=== PATIENT | male | born 1940 | race Caucasian/White ===

== ENCOUNTER 2019-03-20 20:29 | Inpatient (IN) | payer OTHER ==
[~2019-03-20] VITALS: Ht 172.7 cm; Wt 110.2 kg
--- NOTE | ~2019-03-20 | PROC ---
[address] [address] PROCEDURE REPORT Name: SASHA LOVELL Room: [address] ADM IN .R.#: [id number] Admission: 03/20/19 Attend Phys: Jaime Machado MD Discharge: Date of : 38 Report #: [id number] THIS REPORT FOR: //name// For GI report, please see the Provation report in Perceptive 7 content. By: 1212Medical Records Staff EVETTE /JASPER
[2019-03-20 20:30] VITALS: BP 90/64
[2019-03-20 20:56] LABS: HEMATOCRIT 41.9 % (42.0-52.0); HEMOGLOBIN 13.2 gm/dL (14.0-18.0); MCH 26.7 pg (26.0-34.0); MCHC 31.6 g/dL (28.0-37.0); MCV 84.6 fL (80.0-100.0); MPV 7.7 fl. (7.2-11.1); NUCLEATED RBCS 0 /100WBC; PLATELET COUNT* 240 thou/uL (150-400); RBC 4.95 mil/uL (4.50-6.00); WBC 17.9 thou/uL (4.0-11.0)
--- NOTE | 2019-03-20 21:00 | NUR ---
UPON ARRIVAL TO ER LEFT LEG SIZE>THAN RIGHT 2+ PEDAL PULSE NOTED TO BILAT FEET
[2019-03-20 21:03] LABS: ANION GAP 11 mmol/L (7-16); BUN 27 mg/dL (7-18); CALCIUM 8.7 mg/dL (8.5-10.1); CHLORIDE 99 mmol/L (98-107); CO2 23 mmol/L (21-32); CREATININE 3.5 mg/dL (0.6-1.3); GLUCOSE 109 mg/dL (70-99); POTASSIUM 4.7 mmol/L (3.5-5.1); SODIUM 133 mmol/L (136-145)
[2019-03-20 21:07] LABS: URINE BILIRUBIN 1+ (Negative); URINE BLOOD 3+ (Negative); URINE CLARITY CLOUDY; URINE COLOR YELLOW; URINE GLUCOSE-RANDOM NEGATIVE (Negative); URINE KETONES TRACE (Negative); URINE LEUKOCYTES-REFLEX 3+ (Negative); URINE NITRITE-REFLEX NEGATIVE (Negative); URINE PROTEIN 2+ (Negative); URINE SPECIFIC GRAVITY 1.025 (1.005-1.030); URINE UROBILINOGEN 0.2 E.U./dl (0.2-1.0)
[2019-03-20 21:12] LABS: ALBUMIN 2.9 g/dL (3.4-5.0); ALKALINE PHOSPHATASE 113 U/L (46-116); SGOT 18 U/L (15-37); SGPT 11 U/L (30-65); TOTAL BILIRUBIN 0.7 mg/dL (<0.1-1.0); TOTAL PROTEIN 7.7 g/dL (6.4-8.2); TROPONIN-I LEVEL <0.06 ng/mL (<0.06)
[2019-03-20 21:14] LABS: MUCUS None Seen strn/LPF (None Seen); SQUAMOUS 0-3 Few /LPF (0-3); URINE WBC-REFLEX >25 Many /HPF (0-5)
[2019-03-20 21:15] LABS: WBC CLUMPS Few (None Seen)
[2019-03-20 21:16] LABS: CRYSTALS None Seen /LPF (None Seen); HYALINE CASTS 0-3 Few /LPF (None Seen)
[2019-03-20 21:33] LABS: ABSOLUTE BASOPHILS 0.2 thou/uL (0.0-0.2); ABSOLUTE EOSINOPHILS 0.5 thou/uL (0.0-0.7); ABSOLUTE MONOCYTES 1.3 thou/uL (0.0-1.2)
[2019-03-20 21:34] LABS: ANISOCYTOSIS 1+; PLATELET ESTIMATE ADEQUATE
[2019-03-20 21:35] LABS: LARGE PLATELETS OCCASIONAL; MACROCYTES Occasional
[2019-03-20 23:45] VITALS: BP 130/68
[2019-03-21] VITALS (9 sets, daily range): BP systolic 98–196; BP diastolic 54–97
--- NOTE | 2019-03-21 06:34 | NUR ---
RECEIVED REPORT FROM ED RN RAY AT 2330. PT ARRIVED TO UNIT AT 2352. PT AAOX4, GLASS SAGGER IN PLACE, V PACED. FALL PRECAUTIONS IN PLACE. ADMISSION ASSESSMENT COMPLETED. ATTEMPTED TO PLACE REZA CATHETER WITH DIFFICULTY, PLACED 14F COUDE. HOURLY ROUNDING COMPLETED, CALL LIGHT WITHIN REACH. VOICES NO CONCERNS THIS SHIFT.
[2019-03-21 08:31] LABS: CREATININE 3.1 mg/dL (0.6-1.3); POTASSIUM 4.8 mmol/L (3.5-5.1)
--- NOTE | 2019-03-21 14:08 | NUR ---
Pt is A&O. Resides at home with his ex and son. Independent, but has required some assistance recently, Pt stated that he has felt "weak" recently. Hx of SNF in [place]. No hx of HH. Pt has a cane that he uses PRN. [facility]. Pt is in agreement with going to [facility], if necessary, Pt would want to go to [place]. Following.
--- NOTE | 2019-03-21 16:28 | NUR ---
D/C SALES PERFORMANCE ANALYST INFORMED OF PATEINT'S REQUEST TO COMPLETE DPOA. PATIENT COMPLETED FORM AND CM NOTARIZED AND PLACED COPY ON CHART. D/C SALES PERFORMANCE ANALYST ALSO PROVIDED PATIENT WITH MULTIPLE COPIES AND INFORMED PATIENT TO DISPERSE TO FAMILY, AGENT, AND PCP. CM WILL REMAIN AVAILABLE TO ASSIST AND FOLLOW NEEDED.
--- NOTE | 2019-03-21 20:05 | NUR ---
I ASSUMED CARE OF THE PATIENT AT 0700. HE IS ALERT AND ORIENTED X4 AND IS UP WITH STANDBY ASSIST. PT/OT/ST CAME TO EVALUATE. DIET WAS CHANGED FROM SOLID TO CHOPPED TO PUREED (PATIENT IS STRUGGLING TO SWALLOW). BARIUM SWALLOW WAS ORDERED FOR TOMORROW. BED IS IN THE LOW LOCKED POSITION AND CALL LIGHT IS IN REACH. HOURLY ROUNDING IS COMPLETED AND PATIENT NEEDS ARE MET. PAIN IS MANAGED WITH PRN MEDS. HE IS NPO AT MIDNIGHT. LIBIA IS WORKING DIRECTED. PATIENT IS ENCOURAGED TO CHARGE POSITIONS EVERY 2 HOURS. WILL CONTINUE TO MONITOR.
--- NOTE | 2019-03-22 00:59 | NUR ---
ON BED REST UNTIL 0000 THEN OOB WITH STD BY ASSIST. R GROIN DRSG D/I. R GROIN SOFT NO BRUSING OR HEMATOMA NOTED. TELEMETRY SHOWS SR. DENIES PAIN. PT REQUESTING TWO CUPS OF COFFEE.
[2019-03-22 04:00] VITALS: BP 163/76
--- NOTE | 2019-03-22 04:51 | NUR ---
PT LETHARGIC ORIENTED X 4. [place]. TURN Q 2 HRS. TELEMETRY SHOWS AV MOSTLY V PACED WITH ECTOPY. NS AT 100ML/HR. REZA FOR RETENTION.
[2019-03-22 04:56] LABS: HEMATOCRIT 33.9 % (42.0-52.0); MCH 27.3 pg (26.0-34.0); MCV 85.5 fL (80.0-100.0); RBC 3.96 mil/uL (4.50-6.00); RDW-CV 16.6 % (10.5-14.5); WBC 13.7 thou/uL (4.0-11.0)
[2019-03-22 05:01] LABS: HEMOGLOBIN 10.8 gm/dL (14.0-18.0)
--- NOTE | 2019-03-22 05:05 | NUR ---
NPO FOR [facility] SWALLOW STUDY.
[2019-03-22 05:07] LABS: CALCIUM 8.5 mg/dL (8.5-10.1); CREATININE 2.5 mg/dL (0.6-1.3); MAGNESIUM 2.1 mg/dL (1.8-2.4); POTASSIUM 4.3 mmol/L (3.5-5.1)
[2019-03-22 08:00] VITALS: BP 140/79; BP 150/71
[2019-03-22] MEDS ORDERED: LIPITOR 20 MG T20 M1 PO (08:42)
[2019-03-22] MEDS ORDERED: CARVEDILOL12.5 MG PO (08:43)
[2019-03-22] MEDS ORDERED: LASIX 40 MG TAB40 M2 PO (08:45)
[2019-03-22] MEDS ORDERED: ISOSORBIDE DINI20 M2 PO (08:47)
[2019-03-22] MEDS ORDERED: KLOR-CON 1010 MEQ PO (08:48)
--- NOTE | 2019-03-22 09:31 | EKG ---
[place] [address] ELECTROCARDIOGRAM REPORT Name: SASHA LOVELL Room: [address] IN [facility].#: [id number] Admission: 03/20/19 Attend Phys: Jaime Machado MD Discharge: Date of : 39 Report #: [id number] THIS REPORT FOR: //name// [facility] ED Test Date: 2019-03-20 Test Time: 20:39:53 Pat Name: SASHA LOVELL Department: Room: [facility] Gender: M Sheeting Puller: HAI : 1940 Requested By: Hussein Davis Order Number: [id number] MD: Honorio Romano Measurements Intervals [place] Rate: 87 P: 0 [place]: 168 QRS: 157 QRSD: 158 T: -46 QT: 409 QTc: 492 Interpretive Statements Atrial-sensed ventricular-paced complexes No further analysis attempted due to paced rhythm No previous ECG available for comparison Electronically Signed On 03-22-2019 9:31:46 CDT by Honorio Romano [email or web address] <ELECTRONICALLY SIGNED> By: Honorio Romano MD, [facility] 03/22/19 0931 38 38 Honorio Romano MD, [facility] /EPI
[2019-03-22 12:13] VITALS: BP 133/63
[2019-03-22 16:15] VITALS: BP 115/70
[2019-03-22 19:45] VITALS: BP 130/70
[2019-03-23] VITALS: BP 120/59
[2019-03-23 04:00] VITALS: BP 139/68
--- NOTE | 2019-03-23 04:38 | NUR ---
PATIENT REMAINS STABLE THIS SHIFT WITH NO CHANGES IN STATUS. VSS ON ROOM AIR. PATIENT DENIES PAIN AND DISCOMFORT. PATIENT NPO FOR EGD TODAY. CALL LIGHT WITHIN REACH
[2019-03-23 05:09] LABS: HEMATOCRIT 31.9 % (42.0-52.0); MCH 26.6 pg (26.0-34.0); MCHC 31.4 g/dL (28.0-37.0); MCV 84.9 fL (80.0-100.0); MPV 7.8 fl. (7.2-11.1); RBC 3.76 mil/uL (4.50-6.00); RDW-CV 16.7 % (10.5-14.5)
[2019-03-23 05:17] LABS: CREATININE 2.1 mg/dL (0.6-1.3); MAGNESIUM 1.9 mg/dL (1.8-2.4)
[2019-03-23 08:00] VITALS: BP 122/70
[2019-03-23 17:22] VITALS: BP 96/73
[2019-03-23 20:00] VITALS: BP 117/64
[2019-03-24 01:00] VITALS: BP 131/69
[2019-03-24 04:00] VITALS: BP 108/46
[2019-03-24 04:28] LABS: ABSOLUTE BASOPHILS 0.1 thou/uL (0.0-0.2); ABSOLUTE EOSINOPHILS 0.5 thou/uL (0.0-0.7); ABSOLUTE LYMPHOCYTES 2.1 thou/uL (0.8-5.3); ABSOLUTE MONOCYTES 1.5 thou/uL (0.0-1.2); ABSOLUTE NEUTROPHILS 7.3 thou/uL (1.6-8.1); BASOPHILS 0.7 %; EOSINOPHILS 4.4 %; HEMATOCRIT 32.5 % (42.0-52.0); LYMPHOCYTES 18.1 %; MCH 26.6 pg (26.0-34.0); MCHC 30.7 g/dL (28.0-37.0); MCV 86.6 fL (80.0-100.0); MONOCYTES 13.3 %; MPV 7.8 fl. (7.2-11.1); NUCLEATED RBCS 0 /100WBC; PLATELET COUNT* 223 thou/uL (150-400); POLYS 63.5 %; RBC 3.75 mil/uL (4.50-6.00); RDW-CV 16.7 % (10.5-14.5); WBC 11.5 thou/uL (4.0-11.0)
[2019-03-24 04:44] LABS: ALBUMIN 2.1 g/dL (3.4-5.0); CALCIUM 7.9 mg/dL (8.5-10.1); POTASSIUM 4.1 mmol/L (3.5-5.1); TOTAL BILIRUBIN 0.4 mg/dL (<0.1-1.0)
--- NOTE | 2019-03-24 05:06 | NUR ---
PATIENT PROGRESSING TOWARDS GOALS: TOLERATING FULL LIQUID DIET. PATIENT EAGER TO HAVE "REAL FOOD" TODAY. PATIENT DENIES PAIN/DISCOMFORT AND NAUSEA THIS SHIFT. POSSIBLE DC HOME TODAY. CALL LIGHT WITHIN REACH.
[2019-03-24 08:20] VITALS: BP 123/67
[2019-03-24 12:20] VITALS: BP 102/50
[2019-03-24 15:12] LABS: HEPATITIS B SURFACE AG Negative (Negative)
--- NOTE | 2019-03-24 15:21 | NUR ---
SW faxed referral for SNF to [place] as pt first preference; SW received call from admissions at [facility]. SW met with pt to discuss other SNF options and explained the denial of [facility] due to insurance. Pt hopeful to find accepting facility near home and wanted SW to try [facility] and/or [facility], maybe [place]. SW to fax referral to [facility], [facility], and [facility] SNFs. DC will be pending accepting facility and insurance authorization.
[2019-03-24 16:31] VITALS: BP 113/87
--- NOTE | 2019-03-24 17:30 | NUR ---
Patient resting up in chair. Patient is up with moderate assist with walker and gait belt. Patient denies any pain. Patient is tolerating mechanical ground diet, was unable to eat cheeseburger at lunch and diet change dto ground. Patient worked with physical therapy this am. Patient denies any needs at this time. Call light within reach. Will continue to monitor.
[2019-03-24 18:00] VITALS: BP 113/87
--- NOTE | 2019-03-24 18:18 | CON ---
[address] [address] CONSULTATION Name: SASHA LOVELL Room: [address] IN M.R.#: [id number] Admission: 03/20/19 Attend Phys: Jaime Machado MD Discharge: Date of : 39 Report #: [id number] THIS REPORT FOR: //name// CC: Jaime Miles MD DICTATED BY: Liberty Nath [facility] DATE OF SERVICE: 03/22/2019 Please note at the time of this dictation, the patient was seen and physically examined by myself. REASON FOR CONSULTATION: Difficulty swallowing. HISTORY OF PRESENT ILLNESS: This is a 78-year-old male who presented to [facility] for increased weakness and was transferred here for worsening of his weakness and inability to stand and near falling. He states he is weak all over including all of his upper extremities and has progressively gotten worse over the last several weeks. He states he has noted some chills and foul smelling urine. He does self-cath himself regularly as well. The patient also since he has been here has been complaining of difficulty swallowing, which has been worsening over a period of time. He cannot give me the length of time. He states it was not happening at the beginning of the year. It started sometime thereafter and over the last couple of weeks, it has progressively gotten worse. He states it is mainly with solid foods and not liquids. He has not had any vomiting or had to make himself get sick that something has gotten stuck. It is just harder for him to get solid foods to go down. The patient has never had any upper or lower endoscopy studies done at this time. ALLERGIES: No known drug allergies. MEDICATIONS: From home include aspirin, isosorbide dinitrate, Mucinex, and carvedilol. PAST MEDICAL HISTORY: Chronic kidney disease. He does have a defibrillator, history of acid reflux. 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 He does have sleep apnea. He has got a pacemaker with defibrillator and vitamin D deficiency. PAST SURGICAL HISTORY: His ICD placed. He has had a history of a PEG tube and reversal, cholecystectomy. He has got an IVC filter, tonsillectomy. He has had a tracheotomy [place] [address] CONSULTATION Name: SASHA LOVELL Room: [address]#: [id number] Admission: 03/20/19 Attend Phys: Jaime Machado MD Discharge: Date of : 39 Report #: [id number] FAMILY HISTORY: Father esophageal cancer. SOCIAL HISTORY: Lives alone. He does chew tobacco on a regular basis, but has never smoked tobacco. He does currently take a shot of whiskey in his coffee every morning. REVIEW OF SYSTEMS: Twelve-point review of systems is essentially negative except what is mentioned in the HPI. PHYSICAL EXAMINATION: VITAL SIGNS: Temperature 36.6, pulse 81, respirations 14, blood pressure 150/71. HEART: Regular rate and rhythm. LUNGS: Diminished, but clear. ABDOMEN: Soft, positive bowel sounds in all 4 quadrants with no masses or tenderness noted. LABORATORY DATA: Hemoglobin on admission was 13.2, is 10.8, white count was 7.9, is 13.7, platelets 183. GFR is 25. Chest x-ray was completely normal. IMPRESSION: 1. Dysphagia. 2. Confusion, improving. 3. Weakness. 4. Leukocytosis. 5. Anemia. 6. Chronic kidney disease. 7. Tobacco use, chews daily. 8. Alcohol misuse. 9. Family history of esophageal cancer, father. PLAN: 1. Getting a barium swallow today. 2. We will keep him n.p.o. after midnight. 3. Likely will get an EGD tomorrow. 4. We will reassess in the a.m. 5. The patient will need an outpatient colonoscopy unless he agrees for inpatient regarding his anemia since he has never had an endoscopy [place] [address] CONSULTATION Name: SASHA LOVELL Room: [address] IN [facility]#: [id number] Admission: 03/20/19 Attend Phys: Jaime Machado MD Discharge: Date of : 39 Report #: [id number] Thank you for allowing us to participate in this patient's care. Please do not hesitate to call with any questions in regard to this consult. <ELECTRONICALLY SIGNED> By: John Castellanos DO 03/24/19 1818 1009 1224John Castellanos DO /nt
[2019-03-25 05:35] LABS: HEMATOCRIT 33.1 % (42.0-52.0); HEMOGLOBIN 10.5 gm/dL (14.0-18.0); MCH 27.1 pg (26.0-34.0); MCHC 31.6 g/dL (28.0-37.0); MCV 85.8 fL (80.0-100.0); MPV 7.7 fl. (7.2-11.1); RBC 3.86 mil/uL (4.50-6.00); RDW-CV 17.2 % (10.5-14.5); WBC 10.7 thou/uL (4.0-11.0)
[2019-03-25 06:11] LABS: CALCIUM 8.3 mg/dL (8.5-10.1); MAGNESIUM 1.7 mg/dL (1.8-2.4)
[2019-03-25 07:55] VITALS: BP 133/71
[2019-03-25] MEDS ORDERED: BACTRIM DS TAB1 EACH PO (09:45)
[2019-03-25] MEDS ORDERED: PEPCID20 MG PO (09:45)
[2019-03-25] MEDS ORDERED: PROTONIX40 M4 PO (09:45)
[2019-03-25] MEDS ORDERED: B12INJ SUBQ (09:53)
[2019-03-25] MEDS ORDERED: HYDROCODON-ACE1 EAC7 PO (09:53)
--- NOTE | 2019-03-25 10:07 | PATH ---
[address] [address] PATHOLOGY RPT PROCEDURE Name: SASHA WILLIAM Room: [address] IN .R.#: [id number] Admission: 03/20/19 Date of : 39 Discharge: Report #: [id number] Path Case #: [id number] [facility] Accession Number: [id number] . 01 Material submitted: . esophagus - ESOPHAGEAL ULCER AT 35CM, WITH BARRETTS . 01 Clinical history: . None provided . 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 . (TORI:mml; 03/24/2019) QL/03/24/2019 . 02 Electronically signed: . Mitch Coello MD, Pathologist NPI- [id number] . 01 Gross description: . Received in formalin labeled "Sasha William, esophagus ulcer at 35 cm with Watts's," are multiple segments of ordaz soft tissue measuring 0.9 x 0.4 x 0.1 cm in aggregate dimensions. The specimen is filtered and entirely submitted in cassette A1. (TSD; 03/23/2019) TOB/TOB . 02 Pathologist provided ICD-10: K22.10, K22.710 . 02 CPT . 208459 Specimen Comment: A courtesy copy of this report has been sent to Specimen Comment: [phone], , . Specimen Comment: Report sent to ,DR CHAMBERLAIN / DR BANG Performed at: [address], [place] [id number] MD Elias Jain MD Phone: [phone] Performed at: 02 [facility] [address], [place], [place] [id number] MD Mitch Coello MD Phone: [phone]
--- NOTE | 2019-03-25 11:44 | NUR ---
FOLLOWING FOR DISCHARGE-VIANNEY MISHRA IS OUT OF NETWORK FOR PT.'S INSURANCE. [facility] SAID THEY CAN TAKE PT.MEDICALLY PENDING INSURANCE AUTH. SHE REQUESTS WE FAX UPDATED PT/OT NOTES WHEN AVAILABLE. SPOKE WITH PT. HE SAID HE WOULD LIKE ME TO CALL HIS EX , GEORGE TIWARI TO DISCUSS. SPOKE WITH [phone]. SHE SAID SHE IS PT.'S DPOA. SHE SAID [facility] WAS A LITTLE FAR. SHE WANTED ME TO TRY [facility] IN [place]. EXPLAINED THIS WAS NOT ON LIST OF IN NETWORK FACILITIES. SHE ASKED IF ANY AROUNG HERE ARE IN NETWORK. [facility] IS. SHE WOULD LIKE ME TO MAKE A REFERRAL THERE. LEFT FOR FERMIN/PETR AND FAXED INFORMATION INCLUDING DISCHARGE SUMMARY. WILL AWAIT CALL BACK FROM FERMIN.
--- NOTE | 2019-03-25 14:19 | NUR ---
I have reviewed the documentation by KATIANA PLAZA from TODAY to 03/25/19 and I concur with it. ELIGIO DURAN
[2019-03-25 16:00] VITALS: BP 117/60
--- NOTE | 2019-03-25 16:00 | NUR ---
FERMIN/PETR HAD SUBMITTED FOR INSURANCE AUTH TO [facility]. SHE CALLED CM AT THIS TIME AND STATED INSURANCE DENIED SNF AUTH. NOTIFIED . HE SAID HE FELT PT.COULD GO HOME SAFELY IF FAMILY WILL BE WITH HIM AND AGREEABLE TO HOME WITH HH. SPOKE WITH EX ,GEORGE. SHE SAID SHE IS FINE TAKING HIM HOME WITH HH. SHE WOULD LIKE TO USE [facility] SHE USED THEM BEFORE. CM CALLED [facility] AND THEY DO DOES NOT TAKE PT.'S INSURANCE. [facility] DOES NOT GO TO PT.S ADDRESS FOR SERVICE. SPOKE WITH JULIANA/[facility]. SHE WILL ACCEPT PT.TO SERVICE AND WILL SEE HIM THIS WEEKEND. JILLIAN ISIDRO TO FAX DISCHARGE SUMMARY AND REFERRAL INFORMATION TO [facility] AT [phone]. PT.WILL NEED [facility] FOR HOME,PER GEORGE. SPOKE WITH BRIGETTE/PITA. PITA WILL DELIVER WALKER TO PT.'S ROOM IN 1-2 HRS. FAXED ORDER,FACE SHEET,DISCHARGE SUMMARY TO HER WITH HT/WT AND ROOM NUMBER. ABOVE TOLD TO ILA RAYMOND. SHE WILL CALL FOR ANY OTHER NEEDS.
--- NOTE | 2019-03-25 18:35 | NUR ---
PATIENT DISCHARGED TO HOME WITH HOME HEALTH. DISCHARGE PAPERS REVIEWED AND SIGNED. PRESCRIPTIONS AND INFORMATION SHEETS GIVEN. IV REMOVED. PATIENT STRAIGHT CATHED BEFORE DC. PATIENT DENIES ANY FURTHER NEEDS. PATIENT TAKEN BY WHEELCAHIR TO EXIT. LEFT WITH EX-.
== END 2019-03-25 18:35 | disposition home health service (06) | DRG 871 ==
LOC: M.ERS 20:29 → M.2W 21:58 → M.TBA-ER 21:58 → M.ORTHSURG 21:58 → M.2W 23:52 → M.ORTHSURG 03-24 18:57
PROVIDERS: Emergency Medicine Emergency Medical Services; Internal Medicine; Internal Medicine Gastroenterology; ADMIT Internal Medicine
PROC: 0DB58ZX Excision of Esophagus, Via Natural or Artificial Opening Endoscopic, Diagnostic (ICD-10-PCS; principal; 2019-03-23)
DX: A41.9 Sepsis, unspecified organism (principal); N17.0 Acute kidney failure with tubular necrosis; G93.41 Metabolic encephalopathy; I42.9 Cardiomyopathy, unspecified; N39.0 Urinary tract infection, site not specified; N18.4 Chronic kidney disease, stage 4 (severe); E44.0 Moderate protein-calorie malnutrition; K56.609 Unspecified intestinal obstruction, unspecified as to partial versus complete obstruction; K22.10 Ulcer of esophagus without bleeding; E78.00 Pure hypercholesterolemia, unspecified; K21.9 Gastro-esophageal reflux disease without esophagitis; J44.9 Chronic obstructive pulmonary disease, unspecified; I25.10 Atherosclerotic heart disease of native coronary artery without angina pectoris; E78.5 Hyperlipidemia, unspecified; Z60.2 Problems related to living alone; R13.10 Dysphagia, unspecified; D64.9 Anemia, unspecified; F17.220 Nicotine dependence, chewing tobacco, uncomplicated; E86.9 Volume depletion, unspecified; F03.90 Unspecified dementia, unspecified severity, without behavioral disturbance, psychotic disturbance, mood disturbance, and anxiety; E53.8 Deficiency of other specified B group vitamins; N31.9 Neuromuscular dysfunction of bladder, unspecified; K59.00 Constipation, unspecified; G47.33 Obstructive sleep apnea (adult) (pediatric); I12.9 Hypertensive chronic kidney disease with stage 1 through stage 4 chronic kidney disease, or unspecified chronic kidney disease; K44.9 Diaphragmatic hernia without obstruction or gangrene; K21.0 Gastro-esophageal reflux disease with esophagitis; K22.2 Esophageal obstruction; B96.20 Unspecified Escherichia coli [E. coli] as the cause of diseases classified elsewhere; Z93.1 Gastrostomy status; Z90.49 Acquired absence of other specified parts of digestive tract; Z95.0 Presence of cardiac pacemaker; Z95.828 Presence of other vascular implants and grafts; Z98.52 Vasectomy status; Z93.0 Tracheostomy status; Z80.0 Family history of malignant neoplasm of digestive organs; Z68.37 Body mass index [BMI] 37.0-37.9, adult; Z86.718 Personal history of other venous thrombosis and embolism

== ENCOUNTER 2019-03-30 13:31 | Inpatient (IN) | payer OTHER ==
[~2019-03-30] VITALS: Ht 172.7 cm; Wt 116.5 kg
[~2019-03-30 13:31] MED LIST: B12INJ SUBQ; BACTRIM DS TAB1 EACH PO; CARVEDILOL12.5 MG PO; HYDROCODON-ACE1 EAC7 PO; ISOSORBIDE DINI20 M2 PO; KLOR-CON 1010 MEQ PO; LASIX 40 MG TAB40 M2 PO; LIPITOR 20 MG T20 M1 PO; PEPCID20 MG PO; PROTONIX40 M4 PO
[2019-03-30 13:43] VITALS: BP 100/53
[2019-03-30 13:57] LABS: ABSOLUTE EOSINOPHILS 0.5 thou/uL (0.0-0.7); ABSOLUTE LYMPHOCYTES 1.6 thou/uL (0.8-5.3); ABSOLUTE MONOCYTES 1.1 thou/uL (0.0-1.2); HEMOGLOBIN 9.6 gm/dL (14.0-18.0); MCH 27.1 pg (26.0-34.0); MPV 7.2 fl. (7.2-11.1); NUCLEATED RBCS 0 /100WBC; WBC 9.5 thou/uL (4.0-11.0)
[2019-03-30 14:00] LABS: ABSOLUTE BASOPHILS 0.1 thou/uL (0.0-0.2); ABSOLUTE NEUTROPHILS 6.2 thou/uL (1.6-8.1); EOSINOPHILS 5.4 %; MCHC 31.9 g/dL (28.0-37.0); MONOCYTES 11.3 %; PLATELET COUNT* 475 thou/uL (150-400); POLYS 65.3 %; RBC 3.53 mil/uL (4.50-6.00); RDW-CV 16.8 % (10.5-14.5)
[2019-03-30 14:06] LABS: APTT 21.8 Seconds (25.0-31.3)
[2019-03-30 14:07] LABS: ANION GAP 4 mmol/L (7-16); BUN 21 mg/dL (7-18); CALCIUM 8.3 mg/dL (8.5-10.1); CHLORIDE 101 mmol/L (98-107); CO2 29 mmol/L (21-32); CREATININE 2.6 mg/dL (0.6-1.3); GLUCOSE 86 mg/dL (70-99); POTASSIUM 3.6 mmol/L (3.5-5.1); SODIUM 134 mmol/L (136-145)
[2019-03-30 14:19] LABS: ALBUMIN 2.1 g/dL (3.4-5.0); ALKALINE PHOSPHATASE 75 U/L (46-116); CK-MB MASS 0.9 ng/mL (<0.5-3.6); LIPASE 113 U/L (73-393); MAGNESIUM 1.9 mg/dL (1.8-2.4); NT-PRO BRAIN NAT PEPTIDE 865 pg/mL (<300); SGOT 22 U/L (15-37); SGPT 16 U/L (30-65); TOTAL BILIRUBIN 0.3 mg/dL (<0.1-1.0); TOTAL PROTEIN 6.4 g/dL (6.4-8.2); TROPONIN-I LEVEL <0.06 ng/mL (<0.06)
--- NOTE | 2019-03-30 14:39 | EKG ---
[place] [address] ELECTROCARDIOGRAM REPORT Name: LOVELLSASHA Caty Room: [facility]#: [id number] Admission: 03/30/19 Attend Phys: Discharge: Date of : 39 Report #: [id number] THIS REPORT FOR: //name// [facility] ED Test Date: 2019-03-30 Test Time: 13:51:08 Pat Name: SASHA LOVELL Department: Room: Gender: Rv Mechanic: : 1940 Requested By: Doron Escalona Order Number: [id number] MD: Ryland Stern Measurements Intervals [place] Rate: 60 P: 0 NM: 61 QRS: 226 QRSD: 177 T: 44 QT: 500 QTc: 500 Interpretive Statements Atrial-ventricular dual-paced rhythm No further analysis attempted due to paced rhythm Compared to ECG 03/20/2019 20:39:53 pvc's no longer noted Electronically Signed On 03-30-2019 14:39:26 CDT by Ryladn Stern [email or web address] <ELECTRONICALLY SIGNED> By: Ryland Stern MD, [facility] 03/30/19 1439 1351 1351 Ryland Stern MD, FACC /EPI
[2019-03-30 16:21] VITALS: BP 122/62
--- NOTE | 2019-03-30 16:38 | NUR ---
PT TO ROOM FROM ER, APPEARS ALERT O X 4, DENIES CASSANDRA PAIN, DENIES CHEST PAIN, DENIES SOB AT REST, APPEARS SL DYSPNEIC WITH ACTIVITY. ABLE TO TRANSFER WITH STANDBY ASSIST
[2019-03-30 17:44] VITALS: BP 117/52
[2019-03-30 17:54] VITALS: BP 117/52
[2019-03-30 19:55] VITALS: BP 128/50
[2019-03-31] VITALS (7 sets, daily range): BP systolic 105–148; BP diastolic 48–79
--- NOTE | 2019-03-31 05:10 | NUR ---
PT IS ABLE TO COMMUNICATE HIS NEEDS TO STAFF EFFECTIVELY. HE HAS DENIED THE NEED FOR PAIN MEDICATION UP TO THIS TIME. REZA IS PATENT AT THIS TIME. HE HAS BEEN NPO SINCE MIDNIGHT FOR A CARDIOLOGY CONSULT LATER TODAY.
[2019-03-31 08:53] LABS: CREATININE 2.6 mg/dL (0.6-1.3); MAGNESIUM 1.9 mg/dL (1.8-2.4)
[2019-03-31 08:55] LABS: POTASSIUM 4.6 mmol/L (3.5-5.1)
--- NOTE | 2019-03-31 12:58 | 2DMMODE ---
[place] [address] 2 D/M-MODE ECHOCARDIOGRAM Name: SASHA LOVELL Room: [address] IN [facility]#: [id number] Admission: 03/30/19 Attend Phys: Shahbaz Alvarenga, Discharge: Date of : 38 Date of Service: 03/31/19 1258 Report #: [id number] THIS REPORT FOR: //name// APPROVED REPORT Study performed: 03/31/2019 10:16:23 EXAM: Comprehensive 2D, Doppler, and color-flow Echocardiogram Patient Location: In-Patient Room #: 200 Status: routine BSA: 2.26 HR: 66 bpm BP: 114/52 mmHg Rhythm: NSR Other Information Study Quality: Adequate Technically limited study due to no parasternal views available. Indications Dyspnea 2D Dimensions LVOT Diam: 20.47 (18-24mm) Volumes Left Atrial Volume (Systole) LA ESV Index: 18.60 mL/m2 Aortic Valve AoV Peak Akbar.: 2.05 m/s AO Peak Gr.: 16.86 mmHg LVOT Max P.29 mmHg AO Mean Gr.: 9.41 mmHg LVOT Mean P.66 mmHg LVOT Max V: 1.15 m/s AO V2 VTI: 37.98 cm LVOT Mean V: 0.75 m/s FILIPPO (VTI): 1.59 cm2 LVOT V1 VTI: 18.39 cm Mitral Valve MV Mean Gr.: 1.93 mmHg E/A Ratio: 0.65 MV Decel. Time: 481.97 ms MV E Max Akbar.: 0.62 m/s MV PHT: 139.77 ms MVA (PHT): 1.57 [place] [address] 2 D/M-MODE ECHOCARDIOGRAM Name: SASHA LOVELL Room: [address] IN [facility].#: [id number] Admission: 03/30/19 Attend Phys: Shahbaz Alvarenga, Discharge: Date of : 38 Date of Service: 03/31/19 1258 Report #: [id number] TDI E/Lateral E': 6.89 E/Medial E': 8.86 Medial E' Akbar.: 0.07 m/s Lateral E' Akbar.: 0.09 m/s Tricuspid Valve RAP Estimate: 5.00 mmHg TR Peak Gr.: 15.88 mmHg RVSP: 20.00 mmHg PA Pressure: 20.00 mmHg Left Ventricle The left ventricle is normal size. There is normal LV segmental wall motion. There is normal left ventricular wall thickness. Left ventricular systolic function is normal. The left ventricular ejection fraction is within the normal range. LVEF is 55-60%. Grade I - abnormal relaxation pattern. Right Ventricle The right ventricle is normal size. The right ventricular systolic function is normal. Pacemaker lead is present in the right ventricle. Atria The left atrium size is normal. The right atrium size is normal. Aortic Valve Mild aortic valve sclerosis. No aortic regurgitation is present. Mild aortic stenosis. Mitral Valve There is mitral annular calcification. Trace mitral regurgitation. Moderate mitral stenosis. Tricuspid Valve The tricuspid valve is normal in structure. Trace tricuspid regurgitation. No pulmonary hypertension. Pulmonic Valve The pulmonary valve is normal in structure. There is no pulmonic valvular regurgitation. Great Vessels The aortic root is normal in size. IVC [place] [address] 2 D/M-MODE ECHOCARDIOGRAM Name: SASHA LOVELL Room: [address] IN [facility].#: [id number] Admission: 03/30/19 Attend Phys: Shahbaz Alvarenga, Discharge: Date of : 38 Date of Service: 03/31/19 1258 Report #: [id number] Pericardium There is no pericardial effusion. <Conclusion> LVEF is 55-60%. Mild aortic stenosis. <ELECTRONICALLY SIGNED> By: Ryland Stern MD, [facility] 03/31/19 1258 1258 1258 Ryland Stern MD, FACC /INF
--- NOTE | 2019-03-31 13:24 | NUR ---
Pt is A&O. Resides at home with his ex and son. Known to this CM from previous hospital stay. Pt was recently dc to home with [facility] last week, plan was for Pt to dc to skilled, but insurance denied. Pt will need skilled at ct, faxed initial referral to [facility]. Pt has a cane, walker and shower chair at home. Family assists as needed. Hx of skilled at [place]. Following.
[2019-03-31 16:42] LABS: HEMOGLOBIN 9.2 gm/dL (14.0-18.0); MCH 27.1 pg (26.0-34.0); MCHC 31.8 g/dL (28.0-37.0); MCV 85.3 fL (80.0-100.0); MPV 7.4 fl. (7.2-11.1); RBC 3.4 mil/uL (4.50-6.00); RDW-CV 17.4 % (10.5-14.5)
--- NOTE | 2019-03-31 20:16 | NUR ---
ASSUSSMED CARE OF PT APPROX 0730. CARE COMPLETED CHARTED. PT TEST RESULTS CALLED TO PHYSICAN. ORDERS IMPLEMENTED. HOURLY ROUNDING COMPLETED. PT NEEDS MET. CALL LIGHT WITHIN REACH.
[2019-04-01] VITALS: BP 96/57
--- NOTE | 2019-04-01 03:23 | NUR ---
ASSUMED PT CARE AT 1930. ASSESSMENT COMPLETED CHARTED. ABLE TO MAKE NEDS KNOWN. NO C/O PAIN OR DISCOMFORT. UP WITH 1 WITH CANE, REZA DRAINING LIGHT YELLOW URINE. PT RESTING IN BED AT THIS TIME. WILL CONTINUE TO MONITOR.
[2019-04-01 04:00] VITALS: BP 126/59
[2019-04-01 05:44] LABS: HEMATOCRIT 28.4 % (42.0-52.0); MCH 27.1 pg (26.0-34.0); MCHC 31.9 g/dL (28.0-37.0); MCV 84.9 fL (80.0-100.0); MPV 7.2 fl. (7.2-11.1); RBC 3.34 mil/uL (4.50-6.00); RDW-CV 17.2 % (10.5-14.5); WBC 8.8 thou/uL (4.0-11.0)
[2019-04-01 05:51] LABS: CALCIUM 8.1 mg/dL (8.5-10.1); CREATININE 2.5 mg/dL (0.6-1.3); MAGNESIUM 1.9 mg/dL (1.8-2.4); POTASSIUM 3.9 mmol/L (3.5-5.1)
[2019-04-01 08:00] VITALS: BP 125/60
--- NOTE | 2019-04-01 10:19 | NUR ---
CONTINUE TO FOLLOW. PT ON HEPARIN GTT FOR DVT NOW, UPDATED PETR/FAITH. WILL FOLLOW AND DISCUSS WITH
[2019-04-01 12:00] VITALS: BP 102/51
--- NOTE | 2019-04-01 14:06 | NUR ---
CHF DISCHARGE MEDICATION EDUCATION: PATIENT AND FAMILY WERE EDUCATED ON HOW TO TAKE, SIDE EFFECTS, AND HOW IT WORKS REGARDING CARVEDILOL AND TORSEMIDE. A PATIENT EDUCATION HANDOUT WAS PROVIDED. ALL QUESTIONS AND CONCERNS WERE ADDRESSED. THANK YOU.
[2019-04-01 15:36] VITALS: BP 107/59
--- NOTE | 2019-04-01 18:03 | NUR ---
ASSUSSMED CARE OF PT APPROX 0730. CARE COMPLETED CHARTED. FALL PRECAUTIONS IN PLACE. PT CALLS OUT FOR NEEDS APPRIPROATELY. NEEDS MET. HOURLY ROUNDING COMPLETED. PT WORKED WITH THERAPY THIS AFTERNOON. CALL LIGHT AND PERSONAL ITEMS WITHIN REACH.
[2019-04-01 20:00] VITALS: BP 109/56
[2019-04-02] VITALS: BP 107/57
[2019-04-02 04:00] VITALS: BP 101/55
[2019-04-02 05:05] LABS: HEMATOCRIT 28.4 % (42.0-52.0); HEMOGLOBIN 9.1 gm/dL (14.0-18.0); MCH 26.9 pg (26.0-34.0); MCV 84.2 fL (80.0-100.0); MPV 7.5 fl. (7.2-11.1); NUCLEATED RBCS 0 /100WBC; PLATELET COUNT* 462 thou/uL (150-400); RBC 3.37 mil/uL (4.50-6.00); RDW-CV 17.1 % (10.5-14.5); WBC 7.7 thou/uL (4.0-11.0)
[2019-04-02 05:13] LABS: CREATININE 2.4 mg/dL (0.6-1.3); POTASSIUM 3.9 mmol/L (3.5-5.1)
[2019-04-02 06:57] LABS: ABSOLUTE BASOPHILS 0.4 thou/uL (0.0-0.2); ABSOLUTE EOSINOPHILS 0.5 thou/uL (0.0-0.7); ABSOLUTE LYMPHOCYTES 2.2 thou/uL (0.8-5.3); ABSOLUTE MONOCYTES 0.3 thou/uL (0.0-1.2); ABSOLUTE NEUTROPHILS 4.3 thou/uL (1.6-8.1); METAMYELOCYTES 4 %
[2019-04-02 06:58] LABS: HYPOCHROMASIA 2+; MICROCYTES 1+; PLATELET ESTIMATE INCREASED; TOXIC GRANULATION 2+
[2019-04-02 11:35] VITALS: BP 111/52
[2019-04-02] MEDS ORDERED: KEFLEX500 M1 PO ×2 (13:38→13:44)
[2019-04-02] MEDS ORDERED: HYDROCODON-ACE1 EAC7 PO (13:39)
[2019-04-02] MEDS ORDERED: ELIQUIS5 MG PO ×2 (13:39)
[2019-04-02] MEDS ORDERED: VITAMIN D1000 UNI1 PO (13:40)
[2019-04-02] MEDS ORDERED: DEMADEX20 MG PO (13:40)
[2019-04-02] MEDS ORDERED: MIRALAX17 GM PO (13:40)
[2019-04-02] MEDS ORDERED: DOK PLUS TABLE1 EACH PO (13:40)
[2019-04-02] MEDS ORDERED: THERA M PLUS T1 EAC2 PO (13:41)
[2019-04-02] MEDS ORDERED: IRON325 PO (13:41)
[2019-04-02] MEDS ORDERED: FOLIC ACID1 MG PO (13:54)
[2019-04-02 16:44] VITALS: BP 133/69
--- NOTE | 2019-04-02 18:27 | NUR ---
ASSUMED PT CARE AT 0700, VSS, RA, VISUAL ARTIST TRACING AV PACED, UP WITH ASSIST X1 AND WALKER, FULL ASSESSMENT CHARTED. CONT ON BLOOD THINNERS FOR MULT DVT'S, REZA PATENT AND DRAINING DARK YELLOW URINE, BM THIS SHIFT. Q 2 HOUR TURNS AND HOURLY ROUNDING COMPLETED.
[2019-04-02 20:00] VITALS: BP 135/65
[2019-04-03 00:46] VITALS: BP 97/49
--- NOTE | 2019-04-03 03:47 | NUR ---
ASSUMED PT CARE AT 1930. ASSESSMENT COMPLETED CHARTED. ABLE TO MAKE NEEDS KNOWN. NO C/O PAIN OR DISCOMFORT. PT RESTING IN BED AT THIS TIME. VSS. PT WONDERING WHEN HE WILL BE TRANSFERED TO A REHAB FACILITY BUT OTHERWISE CONTENT. CALL LIGHT WITHIN REACH, FALL PRECAUTIONS IN PLACE. WILL CONTINUE TO MONITOR.
[2019-04-03 04:43] VITALS: BP 107/58
[2019-04-03 05:37] LABS: CALCIUM 8.1 mg/dL (8.5-10.1); CREATININE 2.3 mg/dL (0.6-1.3); MAGNESIUM 1.9 mg/dL (1.8-2.4); POTASSIUM 3.7 mmol/L (3.5-5.1)
[2019-04-03 07:45] VITALS: BP 112/55
[2019-04-03] MEDS ORDERED: MIRALAX17 GM PO (11:40)
[2019-04-03] MEDS ORDERED: DOK PLUS TABLE1 EACH PO (11:40)
[2019-04-03 12:24] VITALS: BP 101/55
--- NOTE | 2019-04-03 13:27 | NUR ---
ASSUSSMED CARE OF PT APPROX 0730. ASSESSMENT COMPLETED CHARTED. MEDICATIONS GIVEN CHARTED. PT NEEDS BEING MET. HOURLY ROUNDING IN PROGRESS. PERSONAL ITEMS WITH REACH. I&O MONITORING. FALL PRECAUTIONS IN PLACE. PT USES CALL LIGHT FOR NEEDS APPROPRIATLEY.
[2019-04-03 16:47] VITALS: BP 104/54
[2019-04-03 20:00] VITALS: BP 116/54
[2019-04-04] VITALS: BP 93/40
--- NOTE | 2019-04-04 02:42 | NUR ---
ASSUMED PT CARE AT 1930. ASSESSMENT COMPLETED CHARTED. ABLE TO MAKE NEEDS KNOWN. PT RESTING IN BED AT THIS TIME. NO C/O PAIN OR DISCOMFORT. PT GRANDSON AND FRIEND CAME BY AT THE BEGINNING OF THE SHIFT. VSS. CALL LIGHT WITHIN REACH AND FALL PRECAUTIONS IN PLACE. UP WITH 1 WITH CANE. REZA DRAINING YELLOW URINE. WILL CONTINUE TO MONITOR.
[2019-04-04 04:00] VITALS: BP 106/55
[2019-04-04 04:36] LABS: ABSOLUTE BASOPHILS 0.1 thou/uL (0.0-0.2); ABSOLUTE EOSINOPHILS 0.6 thou/uL (0.0-0.7); ABSOLUTE LYMPHOCYTES 2.1 thou/uL (0.8-5.3); ABSOLUTE MONOCYTES 1.1 thou/uL (0.0-1.2); ABSOLUTE NEUTROPHILS 5.3 thou/uL (1.6-8.1); BASOPHILS 1.1 %; HEMOGLOBIN 9.7 gm/dL (14.0-18.0); LYMPHOCYTES 23.1 %; MCH 26.8 pg (26.0-34.0); MCHC 31.4 g/dL (28.0-37.0); MCV 85.6 fL (80.0-100.0); MONOCYTES 11.8 %; MPV 7.4 fl. (7.2-11.1); NUCLEATED RBCS 0 /100WBC; RBC 3.63 mil/uL (4.50-6.00); RDW-CV 17.8 % (10.5-14.5); WBC 9.2 thou/uL (4.0-11.0)
[2019-04-04 04:38] LABS: PLATELET COUNT* 549 thou/uL (150-400)
[2019-04-04 04:42] LABS: CALCIUM 8.1 mg/dL (8.5-10.1); CREATININE 2.2 mg/dL (0.6-1.3); POTASSIUM 4.2 mmol/L (3.5-5.1)
[2019-04-04 08:00] VITALS: BP 95/48
--- NOTE | 2019-04-04 09:34 | NUR ---
Spoke with Khalida at [facility], she plans to contact insurance to check status on insurance auth for skilled.
[2019-04-04 12:00] VITALS: BP 116/59
[2019-04-04] MEDS ORDERED: KEFLEX500 M1 PO (14:06)
[2019-04-04] MEDS ORDERED: FLOMAX0.4 MG PO (14:06)
[2019-04-04 16:00] VITALS: BP 128/56
--- NOTE | 2019-04-04 17:14 | NUR ---
RECEIVED REPORT FROM CARLOS THORPE. ASSUMED CARE OF PT AROUND 0730. PT A&O X4. VSS. SENSORY SCIENTIST IN PLACE TRACING VPACED WITH NO CHANGES THIS SHIFT. AM ASSESSMENT AND VITALS COMPLETED CHARTED. IV INTACT. MEDS PER EMAR. REZA IN PLACE TO DD - PT STATES IT WAS PLACED THIS STAY. URINE YELLOW AND CLEAR. FLUID RESTRICTION MAINTAINED. VISITED THIS AM. PT HAD INCONTINENCE OF STOOL. PT CLEANED AND LINENS CHANGED. PT HAS DENIED PAIN OR DISCOMFORT THROUGHOUT THE SHIFT. PT AWAITING INSURANCE AUTH FOR SKILLED DISCHARGE. PT CURRENTLY WATCHING TV IN BED, CALL LIGHT IS WTHIN REACH. HOURLY ROUNDING PERFORMED. FALL PRECAUTIONS IN PLACE. WCTM FOR DURATION OF SHIFT.
[2019-04-04 20:00] VITALS: BP 115/61
[2019-04-05] VITALS: BP 104/55
--- NOTE | 2019-04-05 03:04 | NUR ---
PT ALERT ORIENTED. UP TO BR WITH CANE. TELEMETRY SHOWS AV PACED. 2+ PITTING EDEMA IN THIGH, LOWER LEGS, ANKLE AND PEDAL. ON 2000ML FR. ON RA. REZA FOR RETENTION.
[2019-04-05 04:00] VITALS: BP 90/42
[2019-04-05 07:47] VITALS: BP 130/69
--- NOTE | 2019-04-05 08:30 | NUR ---
[facility] spoke with Khalida from [facility], she is contacting Pt's insurance to determine status of insurance auth for Pt to go skilled. Pt is medically stable for dc. Following.
[2019-04-05 12:24] VITALS: BP 93/51
[2019-04-05] MEDS ORDERED: ELIQUIS5 MG PO (14:38)
--- NOTE | 2019-04-05 15:35 | NUR ---
Insurance denied Pt's skilled stay, Pt to dc to home today. Faxed resumption orders to [facility].
--- NOTE | 2019-04-05 16:25 | NUR ---
ASSUMED CARE OF PT AROUND 0730 THIS AM. REFER TO ASSESSMENT. PT WAITING INSURANCE AUTHORIZATION FOR SNF PLACEMENT AND WAS DENIED. DISCHARGE ORDERS TO HOME WITH HOME HEALTH OBTAINED. DC INSTRUCTIONS DISCUSSED WITH PT AND EX- (DPOA) AND VERBALIZES UNDERSTANDING. PT ADAMENT TO HAVE REZA REMOVED AND WILL CONTINUE TO STRAIGHT CATH AT HOME. NO OTHER CONCERNS AT THIS TIME.
== END 2019-04-05 16:47 | disposition home health service (06) | DRG 299 ==
LOC: M.ERS 13:31 → M.2W 14:59 → M.TBA-ER 14:59 → M.2W 16:52
PROVIDERS: Family Medicine; ADMIT Internal Medicine
DX: I82.423 Acute embolism and thrombosis of iliac vein, bilateral (principal); I50.33 Acute on chronic diastolic (congestive) heart failure; I13.0 Hypertensive heart and chronic kidney disease with heart failure and stage 1 through stage 4 chronic kidney disease, or unspecified chronic kidney disease; N18.4 Chronic kidney disease, stage 4 (severe); N39.0 Urinary tract infection, site not specified; E78.00 Pure hypercholesterolemia, unspecified; K59.00 Constipation, unspecified; K21.9 Gastro-esophageal reflux disease without esophagitis; J44.9 Chronic obstructive pulmonary disease, unspecified; I25.10 Atherosclerotic heart disease of native coronary artery without angina pectoris; F03.90 Unspecified dementia, unspecified severity, without behavioral disturbance, psychotic disturbance, mood disturbance, and anxiety; K25.9 Gastric ulcer, unspecified as acute or chronic, without hemorrhage or perforation; G47.33 Obstructive sleep apnea (adult) (pediatric); N31.9 Neuromuscular dysfunction of bladder, unspecified; D64.9 Anemia, unspecified; I34.2 Nonrheumatic mitral (valve) stenosis; E66.01 Morbid (severe) obesity due to excess calories; D50.9 Iron deficiency anemia, unspecified; E53.8 Deficiency of other specified B group vitamins; R33.8 Other retention of urine; Z95.0 Presence of cardiac pacemaker; Z79.899 Other long term (current) drug therapy; Z87.440 Personal history of urinary (tract) infections; Z68.39 Body mass index [BMI] 39.0-39.9, adult; I25.2 Old myocardial infarction; Z79.01 Long term (current) use of anticoagulants

== ENCOUNTER → 2019-05-20 | Outpatient (CLI) | payer OTHER ==
[~2019-05-20] MED LIST changes: +DEMADEX20 MG PO; +DOK PLUS TABLE1 EACH PO; +ELIQUIS5 MG PO; +FLOMAX0.4 MG PO; +FOLIC ACID1 MG PO; +IRON325 PO; +KEFLEX500 M1 PO; +MIRALAX17 GM PO; +ONDANSETRON HCL4 M2 PO; +THERA M PLUS T1 EAC2 PO; +VITAMIN D1000 UNI1 PO
[2019-05-20 12:33] LABS: ABSOLUTE BASOPHILS 0.1 thou/uL (0.0-0.2); ABSOLUTE EOSINOPHILS 0.4 thou/uL (0.0-0.7); ABSOLUTE LYMPHOCYTES 1.8 thou/uL (0.8-5.3); ABSOLUTE MONOCYTES 0.6 thou/uL (0.0-1.2); ABSOLUTE NEUTROPHILS 3.7 thou/uL (1.6-8.1); EOSINOPHILS 5.5 %; HEMATOCRIT 38.9 % (42.0-52.0); HEMOGLOBIN 12.5 gm/dL (14.0-18.0); LYMPHOCYTES 27.4 %; MCH 27.9 pg (26.0-34.0); MCHC 32.1 g/dL (28.0-37.0); MONOCYTES 9.1 %; MPV 7.9 fl. (7.2-11.1); NUCLEATED RBCS 0 /100WBC; PLATELET COUNT* 296 thou/uL (150-400); RBC 4.48 mil/uL (4.50-6.00); RDW-CV 18.2 % (10.5-14.5); WBC 6.4 thou/uL (4.0-11.0)
[2019-05-20 12:51] LABS: ALBUMIN 2.9 g/dL (3.4-5.0); CALCIUM 9.2 mg/dL (8.5-10.1); CREATININE 2.4 mg/dL (0.6-1.3); POTASSIUM 3.9 mmol/L (3.5-5.1); TOTAL BILIRUBIN 0.3 mg/dL (<0.1-1.0); TOTAL PROTEIN 7.1 g/dL (6.4-8.2)
[2019-05-20 14:00] LABS: ESR (SEDRATE) 50 mm/hr (0-20)
== END ==
LOC: M.LAB 12:13
PROVIDERS: Nurse Practitioner Adult Health
DX: D50.9 Iron deficiency anemia, unspecified (principal)

== ENCOUNTER 2019-06-07 15:26 | Emergency (ER) | payer OTHER ==
[~2019-06-07] VITALS: Ht 172.7 cm; Wt 109.3 kg
[~2019-06-07 15:26] MED LIST changes: -ONDANSETRON HCL4 M2 PO
[2019-06-07] MEDS ORDERED: DEMADEX20 MG PO (15:41)
[2019-06-07 16:54] LABS: ABSOLUTE BASOPHILS 0.1 thou/uL (0.0-0.2); ABSOLUTE EOSINOPHILS 0.4 thou/uL (0.0-0.7); ABSOLUTE LYMPHOCYTES 2.1 thou/uL (0.8-5.3); ABSOLUTE NEUTROPHILS 3.5 thou/uL (1.6-8.1); BASOPHILS 0.8 %; EOSINOPHILS 5.4 %; HEMATOCRIT 37.1 % (42.0-52.0); HEMOGLOBIN 12.1 gm/dL (14.0-18.0); LYMPHOCYTES 30.1 %; MCH 27.9 pg (26.0-34.0); MCHC 32.5 g/dL (28.0-37.0); MONOCYTES 13.5 %; MPV 8.1 fl. (7.2-11.1); NUCLEATED RBCS 0 /100WBC; PLATELET COUNT* 220 thou/uL (150-400); POLYS 50.2 %; RBC 4.32 mil/uL (4.50-6.00); RDW-CV 17.3 % (10.5-14.5)
[2019-06-07 17:03] LABS: APTT 30.9 Seconds (25.0-31.3); INR 1.1; PROTIME 11.4 Seconds (9.20-11.50)
[2019-06-07 17:06] LABS: CALCIUM 8.7 mg/dL (8.5-10.1); CREATININE 2.4 mg/dL (0.6-1.3); POTASSIUM 3.9 mmol/L (3.5-5.1)
[2019-06-07 17:10] LABS: ALBUMIN 2.6 g/dL (3.4-5.0); TOTAL BILIRUBIN 0.6 mg/dL (<0.1-1.0); TOTAL PROTEIN 6.5 g/dL (6.4-8.2)
[2019-06-07 17:39] LABS: URINE BILIRUBIN NEGATIVE (Negative); URINE BLOOD 3+ (Negative); URINE CLARITY CLEAR; URINE COLOR YELLOW; URINE GLUCOSE-RANDOM NEGATIVE (Negative); URINE KETONES NEGATIVE (Negative); URINE LEUKOCYTES-REFLEX 3+ (Negative); URINE NITRITE-REFLEX NEGATIVE (Negative); URINE PROTEIN 1+ (Negative); URINE UROBILINOGEN 0.2 E.U./dl (0.2-1.0)
[2019-06-07 17:45] LABS: BACTERIA-REFLEX >30 Many /HPF (None Seen); COARSE GRANULAR CASTS 0-3 Few /LPF (None Seen); CRYSTALS None Seen /LPF (None Seen); MUCUS 0-3 Light strn/LPF (None Seen); SQUAMOUS 4-10 Moderate /LPF (0-3); URINE RBC 0-2 Rare /HPF (0-2); URINE WBC-REFLEX >25 Many /HPF (0-5)
[2019-06-07 18:38] LABS: INFLUENZA A ANTIGEN Negative (Negative); INFLUENZA B ANTIGEN Negative (Negative)
[2019-06-07] MEDS ORDERED: KEFLEX500 M1 PO ×2 (18:41→18:42)
[2019-06-07] MEDS ORDERED: ONDANSETRON HCL4 M2 PO ×2 (18:41→18:43)
[2019-06-07 19:24] VITALS: BP 116/62
== END 2019-06-07 19:10 | disposition home or self-care (01) ==
LOC: M.ERS 15:26
PROVIDERS: Nurse Practitioner Family
DX: N39.0 Urinary tract infection, site not specified (principal); I50.9 Heart failure, unspecified; E78.00 Pure hypercholesterolemia, unspecified; N18.4 Chronic kidney disease, stage 4 (severe); Z95.0 Presence of cardiac pacemaker

== ENCOUNTER → 2019-07-18 | Outpatient (CLI) | payer OTHER ==
[~2019-07-18] MED LIST changes: +ONDANSETRON HCL4 M2 PO
== END ==
LOC: M.ULTRA 07-14 16:00
DX: N18.4 Chronic kidney disease, stage 4 (severe) (principal); N13.30 Unspecified hydronephrosis

== ENCOUNTER 2019-08-24 11:34 | Inpatient (IN) | payer MEDICARE ==
[~2019-08-24] VITALS: Ht 172.7 cm; Wt 108.3 kg
[2019-08-24 11:50] VITALS: BP 93/46
[2019-08-24 12:05] LABS: ABSOLUTE BASOPHILS 0.1 thou/uL (0.0-0.2); ABSOLUTE EOSINOPHILS 0.1 thou/uL (0.0-0.7); ABSOLUTE LYMPHOCYTES 2.3 thou/uL (0.8-5.3); ABSOLUTE MONOCYTES 1.8 thou/uL (0.0-1.2); ABSOLUTE NEUTROPHILS 10.2 thou/uL (1.6-8.1); BASOPHILS 0.5 %; EOSINOPHILS 0.4 %; HEMATOCRIT 41.2 % (42.0-52.0); HEMOGLOBIN 13.6 gm/dL (14.0-18.0); LYMPHOCYTES 15.9 %; MCH 28.8 pg (26.0-34.0); MCHC 32.9 g/dL (28.0-37.0); MCV 87.5 fL (80.0-100.0); MONOCYTES 12.2 %; MPV 8.4 fl. (7.2-11.1); NUCLEATED RBCS 0 /100WBC; PLATELET COUNT* 197 thou/uL (150-400); RBC 4.71 mil/uL (4.50-6.00); RDW-CV 16.3 % (10.5-14.5); WBC 14.4 thou/uL (4.0-11.0)
[2019-08-24 12:18] LABS: URINE BILIRUBIN NEGATIVE (Negative); URINE BLOOD 3+ (Negative); URINE CLARITY TURBID; URINE COLOR YELLOW; URINE GLUCOSE-RANDOM NEGATIVE (Negative); URINE KETONES NEGATIVE (Negative); URINE LEUKOCYTES-REFLEX 2+ (Negative); URINE NITRITE-REFLEX POSITIVE (Negative); URINE PROTEIN 2+ (Negative); URINE UROBILINOGEN 0.2 E.U./dl (0.2-1.0)
[2019-08-24 12:20] LABS: BACTERIA-REFLEX >30 Many /HPF (None Seen); CASTS None Seen /LPF (None Seen); CRYSTALS None Seen /LPF (None Seen); MUCUS 0-3 Light strn/LPF (None Seen); SQUAMOUS NONE SEEN /LPF (0-3); URINE RBC 3-10 Few /HPF (0-2); URINE WBC-REFLEX >25 Many /HPF (0-5)
[2019-08-24 12:23] LABS: CALCIUM 8.3 mg/dL (8.5-10.1); CREATININE 3.5 mg/dL (0.6-1.3); POTASSIUM 4.3 mmol/L (3.5-5.1)
[2019-08-24 12:27] LABS: ALBUMIN 2.8 g/dL (3.4-5.0); TOTAL BILIRUBIN 1.5 mg/dL (<0.1-1.0); TOTAL PROTEIN 6.8 g/dL (6.4-8.2)
[2019-08-24 12:36] LABS: BE -0.3 mmol/L (-2 to +3); PCO2 42.5 mmHg (35.0-45.0); PO2 67.8 mmHg (75.0-100.0); pH 7.385 (7.340-7.450)
--- NOTE | 2019-08-24 15:07 | EKG ---
[place] [address] ELECTROCARDIOGRAM REPORT Name: SASHA LOVELL Room: [facility]7 ADM IN .R.#: [id number] Admission: 08/24/19 Attend Phys: Gilberto Cárdenas Discharge: Date of : 38 Report #: [id number] THIS REPORT FOR: //name// [facility] ED Test Date: 2019-08-24 Test Time: 12:30:54 Pat Name: SASHA LOVELL Department: Room: [facility] Gender: M Spindle Sander: : 1940 Requested By: Suki Snow Order Number: [id number] MD: Jose Miguel Kent Measurements Intervals [place] Rate: 61 P: -1 IA: 66 QRS: 211 QRSD: 157 T: 45 QT: 440 QTc: 444 Interpretive Statements Atrial-ventricular dual-paced complexes No further analysis attempted due to paced rhythm Compared to ECG 03/30/2019 13:51:08 No significant changes Electronically Signed On 08-24-2019 15:06:56 [employer] by Jose Miguel Kent [email or web address] <ELECTRONICALLY SIGNED> By: Jose Miguel Kent MD, FAC 08/24/19 1506 1230 1230 Jose Miguel Kent MD, [facility] /EPI
[2019-08-24 18:33] VITALS: BP 103/53
[2019-08-24 18:55] VITALS: BP 116/57
[2019-08-24 21:01] VITALS: BP 146/75
[2019-08-24 23:31] VITALS: BP 123/60
[2019-08-25 03:59] VITALS: BP 103/45
[2019-08-25 08:00] VITALS: BP 132/72
[2019-08-25 12:54] VITALS: BP 117/59
[2019-08-25 16:00] VITALS: BP 114/58
[2019-08-25 19:50] VITALS: BP 136/71; BP 144/69
[2019-08-26 00:05] VITALS: BP 133/66
[2019-08-26 04:05] VITALS: BP 125/71
[2019-08-26 08:05] VITALS: BP 141/69
[2019-08-26 13:38] VITALS: BP 124/71
[2019-08-26 14:04] LABS: ABSOLUTE BASOPHILS 0.1 thou/uL (0.0-0.2); ABSOLUTE EOSINOPHILS 0.4 thou/uL (0.0-0.7); ABSOLUTE LYMPHOCYTES 1.6 thou/uL (0.8-5.3); ABSOLUTE MONOCYTES 0.6 thou/uL (0.0-1.2); ABSOLUTE NEUTROPHILS 3.4 thou/uL (1.6-8.1); EOSINOPHILS 5.9 %; HEMATOCRIT 40.7 % (42.0-52.0); HEMOGLOBIN 13.4 gm/dL (14.0-18.0); LYMPHOCYTES 25.9 %; MCH 28.8 pg (26.0-34.0); MCHC 32.9 g/dL (28.0-37.0); MCV 87.4 fL (80.0-100.0); MONOCYTES 9.9 %; MPV 8.9 fl. (7.2-11.1); NUCLEATED RBCS 0 /100WBC; PLATELET COUNT* 214 thou/uL (150-400); POLYS 57.3 %; RBC 4.66 mil/uL (4.50-6.00); RDW-CV 16.5 % (10.5-14.5)
[2019-08-26 14:14] LABS: ALBUMIN 2.6 g/dL (3.4-5.0); CALCIUM 8.3 mg/dL (8.5-10.1); CREATININE 2.3 mg/dL (0.6-1.3); POTASSIUM 3.9 mmol/L (3.5-5.1); TOTAL BILIRUBIN 0.4 mg/dL (<0.1-1.0); TOTAL PROTEIN 6.6 g/dL (6.4-8.2)
[2019-08-26 20:00] VITALS: BP 146/78
[2019-08-27 07:45] VITALS: BP 154/75
[2019-08-27 17:45] VITALS: BP 133/73
[2019-08-27 19:40] VITALS: BP 142/76
[2019-08-28 04:28] LABS: HEMATOCRIT 38.1 % (42.0-52.0); HEMOGLOBIN 12.6 gm/dL (14.0-18.0); MCH 28.7 pg (26.0-34.0); MCHC 33.1 g/dL (28.0-37.0); MCV 86.7 fL (80.0-100.0); MPV 8.1 fl. (7.2-11.1); RBC 4.39 mil/uL (4.50-6.00); RDW-CV 16.1 % (10.5-14.5)
[2019-08-28 04:37] LABS: CALCIUM 7.6 mg/dL (8.5-10.1); MAGNESIUM 1.6 mg/dL (1.8-2.4); POTASSIUM 3.6 mmol/L (3.5-5.1)
[2019-08-28 08:10] VITALS: BP 149/72
[2019-08-28 10:33] VITALS: BP 149/72
[2019-08-28] MEDS ORDERED: AUGMENTIN 500-1 EACH PO (12:52)
== END 2019-08-28 13:50 | disposition home or self-care (01) | DRG 871 ==
LOC: M.ERS 11:34 → M.2W 13:59 → M.TBA-ER 13:59 → M.2W 18:17 → M.3W 08-26 17:27
PROVIDERS: Family Medicine; Internal Medicine; Personal Emergency Response Attendant; Physician Assistant; ADMIT Internal Medicine
DX: A41.9 Sepsis, unspecified organism (principal); R65.21 Severe sepsis with septic shock; N18.4 Chronic kidney disease, stage 4 (severe); N17.9 Acute kidney failure, unspecified; I50.32 Chronic diastolic (congestive) heart failure; N13.6 Pyonephrosis; E78.5 Hyperlipidemia, unspecified; B96.1 Klebsiella pneumoniae [K. pneumoniae] as the cause of diseases classified elsewhere; E78.00 Pure hypercholesterolemia, unspecified; D50.9 Iron deficiency anemia, unspecified; K21.9 Gastro-esophageal reflux disease without esophagitis; N31.9 Neuromuscular dysfunction of bladder, unspecified; R33.9 Retention of urine, unspecified; E53.8 Deficiency of other specified B group vitamins; R26.9 Unspecified abnormalities of gait and mobility; Z79.899 Other long term (current) drug therapy; Z72.89 Other problems related to lifestyle; Z79.01 Long term (current) use of anticoagulants; Z86.718 Personal history of other venous thrombosis and embolism; Z95.0 Presence of cardiac pacemaker